=== PATIENT | male | born 1980 | race Caucasian/White ===

== ENCOUNTER 2016-12-21 05:05 | Inpatient (IN) | payer SELFPAY ==
[~2016-12-21] VITALS: Ht 188 cm; Wt 112.0 kg
[2016-12-21] MEDS ORDERED: NICARDIPINE 40MG/200ML PREMIX 200 ML IV PRN (05:45)
[2016-12-21] MEDS ORDERED: NITROGLYCERIN OINT 1GM/INCH UDPKT TD ONE (05:45)
[2016-12-21] MEDS ORDERED: CLONIDINE 0.2MG TABLET PO ONE (05:45)
[2016-12-21 05:58] LABS: BASOPHILS % 0.3 % (0.0-2.0); EOSINOPHILS % 0.1 % (0.0-5.0); HEMATOCRIT. 41.5 % (42.0-52.0); HEMOGLOBIN. 14.1 g/dL (14.0-18.0); LYMPHOCYTES % 15.6 % (20.0-50.0); MEAN CORPUSCULAR HEMOGLOBIN 27.9 pg (28.0-32.0); MEAN CORPUSCULAR VOLUME 81.8 fL (80.0-94.0); MEAN PLATELET VOLUME 7.5 fl (7.4-10.4); MONOCYTES % 8.6 % (2.0-8.0); NEUTROPHILS % 75.4 % (40.0-76.0); PLATELET 218 x1000/uL (130-400); RED BLOOD CELL COUNT 5.08 mill/uL (4.7-6.1); RED CELL DISTRIBUTION WIDTH 13.1 % (11.6-14.6)
[2016-12-21] MEDS ORDERED: SODIUM CHLORIDE 0.9% 1000ML BAG (SEPSIS BOLUS) IV ONE (06:00)
[2016-12-21 06:13] LABS: INR 1.2; PARTIAL THROMBOPLASTIN TIME 29.4 sec (23.4-31.0); PROTHROMBIN TIME 12.8 sec (9.4-11.6)
[2016-12-21 06:18] LABS: CARBON DIOXIDE 24 mEq/L (21-32); CHLORIDE 96 mEq/L (98-107); TROPONIN I 0.03 ng/mL (0.00-0.04)
[2016-12-21 08:37] LABS: CLARITY URINE CLEAR (CLEAR); COLOR URINE DARK YELLOW (YELLOW); GLUCOSE URINE NEGATIVE (NEGATIVE); KETONES URINE NEGATIVE (NEGATIVE); LEUKOCYTE ESTERASE URINE TRACE (NEGATIVE); NITRITE URINE NEGATIVE (NEGATIVE); OCCULT BLOOD URINE NEGATIVE (NEGATIVE); PH URINE 5.5 (4.5-8.0); PROTEIN URINE NEGATIVE (NEGATIVE); SPECIFIC GRAVITY URINE 1.019 (1.005-1.030)
[2016-12-21] MEDS ORDERED: LEVOFLOXACIN 500MG PREMIX 100 ML IV ONE (09:15)
[2016-12-21] MEDS ORDERED: METRONIDAZOLE 500 MG PREMIX 100 ML IV ONE (09:15)
[2016-12-21] MEDS ORDERED: NOREPINEPHRINE 4 MG in DEXT 5% WATER 246 ML IV ONE (11:00)
[2016-12-21] MEDS ORDERED: ACETAMINOPHEN 325MG TABLET PO ONE (11:00)
[2016-12-21] MEDS ORDERED: MORPHINE SULFATE 4 MG/ML CPJ (NOT FOR IM USE) IV PRN (13:45)
[2016-12-21] MEDS ORDERED: ONDANSETRON HCL 4MG/2ML VIAL IV PRN (13:45)
[2016-12-21] MEDS ORDERED: CLONIDINE 0.1MG TABLET PO PRN (13:45)
[2016-12-21] MEDS ORDERED: ACETAMINOPHEN 325MG TABLET PO PRN (13:45)
[2016-12-21] MEDS ORDERED: HYDROCODONE/ACETAMINOPHEN 5/325MG TABLET PO PRN (13:45)
[2016-12-21] MEDS ORDERED: DIPHENHYDRAMINE 50MG/ML VIAL IV PRN (13:45)
[2016-12-21] MEDS ORDERED: IPRATROPIUM/ALBUTEROL 0.5-3(2.5)MG/3ML NEB INH PRN (13:45)
[2016-12-21 14:57] LABS: CORTISOL 27.2 ucg/dL
[2016-12-21 15:09] LABS: HEPATITIS B SURFACE ANTIGEN NEGATIVE
[2016-12-21 15:36] LABS: HEPATITIS B CORE AB IGM NEGATIVE
[2016-12-21 15:38] LABS: HEPATITIS A AB IGM NEGATIVE (NEGATIVE)
[2016-12-21] MEDS: SODIUM CHLORIDE 0.9% 1,000 ML IV SCH (15:51)
[2016-12-21 16:07] LABS: *AMPHETAMINES SCREEN URINE PRESUMTIVE POSITIVE (NEGATIVE); *BARBITURATES SCREEN URINE NEGATIVE (NEGATIVE); *BENZODIAZEPINES SCREEN URINE NEGATIVE (NEGATIVE); *COCAINE SCREEN URINE NEGATIVE (NEGATIVE); CANNABINOID URINE SCREEN NEGATIVE (NEGATIVE); METHADONE URINE SCREEN NEGATIVE (NEGATIVE); OPIATES URINE SCREEN NEGATIVE (NEGATIVE); PHENCYCLIDINE URINE SCREEN NEGATIVE (NEGATIVE)
[2016-12-21 16:17] VITALS: BP 114/70
[2016-12-21 16:20] VITALS: BP 114/70
[2016-12-21 17:21] LABS: TROPONIN I 0.07 ng/mL (0.00-0.04)
[2016-12-21 18:00] VITALS: BP 104/65
[2016-12-21] MEDS ORDERED: CEFEPIME 2,000 MG in DEXT 5% WATER 100 ML IV SCH (18:30)
[2016-12-21 20:00] VITALS: BP 100/68
[2016-12-21] MEDS: METRONIDAZOLE 500 MG PREMIX 100 ML IV SCH (20:50)
[2016-12-21 22:00] VITALS: BP 119/69
[2016-12-22] VITALS: BP 95/59
[2016-12-22 02:00] VITALS: BP 110/65
[2016-12-22] MEDS: METRONIDAZOLE 500 MG PREMIX 100 ML IV SCH (03:46)
[2016-12-22] MEDS: SODIUM CHLORIDE 0.9% 1,000 ML IV SCH (03:47)
[2016-12-22 04:00] VITALS: BP 109/70
[2016-12-22 06:00] VITALS: BP 109/71
[2016-12-22 06:45] LABS: HEMATOCRIT. 38.7 % (42.0-52.0); HEMOGLOBIN. 13.5 g/dL (14.0-18.0); MEAN CORPUSCULAR HEMOGLOBIN 28.8 pg (28.0-32.0); MEAN CORPUSCULAR VOLUME 82.6 fL (80.0-94.0); MEAN PLATELET VOLUME 8.2 fl (7.4-10.4); PLATELET 189 x1000/uL (130-400); RED BLOOD CELL COUNT 4.68 mill/uL (4.7-6.1); RED CELL DISTRIBUTION WIDTH 13.2 % (11.6-14.6)
[2016-12-22 06:59] LABS: CLARITY URINE CLEAR (CLEAR); COLOR URINE DARK YELLOW (YELLOW); GLUCOSE URINE NEGATIVE (NEGATIVE); KETONES URINE NEGATIVE (NEGATIVE); LEUKOCYTE ESTERASE URINE NEGATIVE (NEGATIVE); NITRITE URINE NEGATIVE (NEGATIVE); OCCULT BLOOD URINE NEGATIVE (NEGATIVE); PH URINE 5.5 (4.5-8.0); PROTEIN URINE NEGATIVE (NEGATIVE); SPECIFIC GRAVITY URINE 1.021 (1.005-1.030)
[2016-12-22 07:00] LABS: CARBON DIOXIDE 27 mEq/L (21-32); CHLORIDE 103 mEq/L (98-107); TROPONIN I 0.11 ng/mL (0.00-0.04)
[2016-12-22 07:05] LABS: HDL CHOLESTEROL 12 mg/dL (40-59); LDL CHOLESTEROL 62 mg/dL (5-100)
[2016-12-22 17:39] LABS: PLATELET ESTIMATE NORMAL
[2016-12-23 09:11] LABS: ABSOLUTE LYMPHOCYTES 1.9 x10E3/uL (0.7-3.1); ABSOLUTE MONOCYTES 2.8 x10E3/uL (0.1-0.9); BASOPHILS 0 % (Not Estab.); HEMATOCRIT 43.2 % (37.5-51.0); HEMATOLOGY COMMENTS Note: (.); HEMOGLOBIN 14.7 g/dL (12.6-17.7); LYMPHOCYTES 13 % (Not Estab.); MEAN CORPUSCULAR VOLUME 85 fL (79-97); MONOCYTES 19 % (Not Estab.); NEUTROPHILS 58 % (Not Estab.); PLATELETS 209 x10E3/uL (150-379); RBC 5.07 x10E6/uL (4.14-5.80); RED CELL DISTRIBUTION WIDTH 14.1 % (12.3-15.4); WBC 14.7 x10E3/uL (3.4-10.8)
[2016-12-23 13:10] LABS: % CD 3 POS. LYMPHOCYTES 73.6 % (57.5-86.2); % CD 4 POS. LYMPHOCYTES 5.9 % (30.8-58.5); % CD 8 POS. LYMPH 66.7 % (12.0-35.5); ABSOLUTE CD 3 1398 /uL (622-2402); ABSOLUTE CD 4 HELPER 112 /uL (359-1519); ABSOLUTE CD 8 SUPPRESSOR 1267 /uL (109-897); CD4/CD8 RATIO 0.09 (0.92-3.72)
== END 2016-12-22 07:35 | disposition left against medical advice (07) | DRG 720 ==
LOC: ER 05:05 → EDBEDREQ 06:04 → EDBEDREQSVC 11:01 → ENRESERV 11:57 → CANRESERV 11:57 → EDBEDREQSVC 14:27 → EDBEDREQTM 14:27 → ENRESERV 15:25 → 5EST 16:28
PROVIDERS: ADMIT Internal Medicine; ATTEND Internal Medicine
PROC: 02HV33Z Insertion of Infusion Device into Superior Vena Cava, Percutaneous Approach (ICD-10-PCS; principal; 2016-12-21)
PROC: B548ZZA Ultrasonography of Superior Vena Cava, Guidance (ICD-10-PCS; 2016-12-21)
DX: A41.9 Sepsis, unspecified organism (principal); R65.21 Severe sepsis with septic shock; E87.2 Acidosis; I48.91 Unspecified atrial fibrillation; Z87.891 Personal history of nicotine dependence; Z91.19 Patient's noncompliance with other medical treatment and regimen; R74.0 Nonspecific elevation of levels of transaminase and lactic acid dehydrogenase [LDH]; Z59.0 Homelessness; K52.9 Noninfective gastroenteritis and colitis, unspecified
CPT/HCPCS: 36415; 36569; 71010; 76937; 80053; 80061; 80305; 81001; 81003; 82533; 83605; 83690; 83735; 84484; 85025; 85610; 85730; 86359; 86360; 86645; 86705; 86709; 86803; 87015; 87040; 87045; 87086; 87340; 87427; 87449; 87493; 89055; 93005; 96361; 96365; 96367; 96375; 99291; C1725; J0692; J1956; J3490; J7030; J7050; J7060

== ENCOUNTER 2017-07-05 17:41 | Emergency (ER) | payer OTHER ==
[~2017-07-05] VITALS: Ht 188 cm; Wt 100.0 kg
[2017-07-05 18:24] VITALS: BP 150/89
[2017-07-05] MEDS ORDERED: ACETAMINOPHEN 325MG TABLET PO ONE (19:00)
[2017-07-05] MEDS ORDERED: SODIUM CHLORIDE 0.9% 1000ML BAG (SEPSIS BOLUS) IV ONE (19:15)
[2017-07-05 19:39] LABS: CHLORIDE 100 mEq/L (98-107)
[2017-07-05 19:42] LABS: INR 1.1; PROTHROMBIN TIME 11.2 sec (9.4-11.6)
[2017-07-05 19:44] LABS: HEMATOCRIT. 42.1 % (42.0-52.0); HEMOGLOBIN. 14.9 g/dL (14.0-18.0); MEAN CORPUSCULAR HEMOGLOBIN 29.5 pg (28.0-32.0); MEAN CORPUSCULAR VOLUME 83.2 fL (80.0-94.0); MEAN PLATELET VOLUME 7.5 fl (7.4-10.4); PLATELET 242 x1000/uL (130-400); RED BLOOD CELL COUNT 5.05 mill/uL (4.7-6.1); RED CELL DISTRIBUTION WIDTH 13.5 % (11.6-14.6)
[2017-07-05 20:01] LABS: PLATELET ESTIMATE NORMAL
== END 2017-07-05 22:09 | disposition left against medical advice (07) ==
LOC: ER 21:30
DX: R10.9 Unspecified abdominal pain (principal); R94.5 Abnormal results of liver function studies; I48.0 Paroxysmal atrial fibrillation
CPT/HCPCS: 36415; 71045; 80053; 83605; 83690; 85025; 85610; 87040; 93005; 99285; J7030

== ENCOUNTER 2023-11-22 02:51 | Emergency (ER) | payer OTHER ==
[~2023-11-22] VITALS: Ht 182.9 cm; Wt 93.0 kg
[2023-11-22 02:54] VITALS: O2SAT 99
[2023-11-22 03:38] LABS: CHLORIDE 99 mEq/L (98-107); POTASSIUM 4.2 mEq/L (3.5-5.1); SODIUM 127 mEq/L (136-145)
[2023-11-22 03:39] LABS: CALCIUM 8.8 mg/dL (8.7-10.4); CARBON DIOXIDE 24 mEq/L (21-32)
[2023-11-22] MEDS: SODIUM CHLORIDE 0.9% 1000ML BAG (SEPSIS BOLUS) IV ONE (03:41)
[2023-11-22 03:44] LABS: CREATININE 0.8 mg/dL (0.6-1.3); GLUCOSE 115 mg/dL (70-105); UREA NITROGEN BLOOD 9 mg/dL (9-23)
[2023-11-22 03:46] LABS: ALANINE AMINOTRANSFERASE 69 IU/L (10-49); ALBUMIN 3.3 g/dL (3.2-4.8); ASPARTATE AMINOTRANSFERASE 103 IU/L (<34); BILIRUBIN DIRECT 0.1 mg/dL (<=3.0); BILIRUBIN TOTAL 0.4 mg/dL (0.1-1.0); HEMATOCRIT. 36.4 % (42.0-52.0); HEMOGLOBIN. 12.5 g/dL (14.0-18.0); MEAN CORPUSCULAR HEMOGLOBIN 30.8 pg (28.0-32.0); MEAN CORPUSCULAR HGB CONC 34.5 g/dL (31.0-37.0); MEAN CORPUSCULAR VOLUME 89.4 fL (80.0-94.0); MEAN PLATELET VOLUME 8.8 fl (7.4-10.4); PLATELET 176 x1000/uL (130-400); RED BLOOD CELL COUNT 4.07 mill/uL (4.7-6.1); RED CELL DISTRIBUTION WIDTH 14.3 % (11.6-14.6); WHITE BLOOD COUNT 4.9 x1000/uL (4.5-11.0)
[2023-11-22 03:47] LABS: PROTEIN TOTAL 8.2 g/dL (6.0-8.3)
[2023-11-22 03:48] LABS: INR 1.1; PROTHROMBIN TIME 12.2 sec (9.6-11.0)
[2023-11-22] MEDS: PIPERACILLIN/TAZO 3.375G/50ML 50 ML IV ONE (03:50)
[2023-11-22] MEDS: ACETAMINOPHEN 325MG TABLET PO STA (03:50)
[2023-11-22 03:55] LABS: DIFFERENTIAL COMMENT 1
[2023-11-22] MEDS: VANCOMYCIN 1G PREMIX 200 ML IV ONE (04:32)
[2023-11-22 04:37] LABS: BG BASE EXCESS -0.6 mmol/L (-2.0-3.0); BG CARBOXYHEMOGLOBIN 1.1 % (0.5-1.5); BG DEOXYHEMOGLOBIN 4.9 % (0.0-5.0); BG FRACTION INSPIRED OXYGEN 21; BG HCO3 ACT 22.4 mmol/L (21.0-28.0); BG METHEMOGLOBIN 0.3 % (0.5-1.5); BG OXYHEMOGLOBIN 93.7 % (94.0-98.0); BG PCO2 31.8 mmHg (35.0-48.0); BG PH 7.465 (7.350-7.450); BG PO2 74.3 mmHg (83.0-108.0); BG SAMPLE SITE RIGHT RADIAL; BG TOTAL HEMOGLOBIN 13.1 g/dL (13.5-17.5); BG VENT MODE ROOM AIR
[2023-11-22 04:46] LABS: CLARITY URINE CLEAR (CLEAR); COLOR URINE YELLOW (YELLOW); GLUCOSE URINE NEGATIVE (NEGATIVE); KETONES URINE NEGATIVE (NEGATIVE); LEUKOCYTE ESTERASE URINE NEGATIVE (NEGATIVE); NITRITE URINE NEGATIVE (NEGATIVE); OCCULT BLOOD URINE NEGATIVE (NEGATIVE); PROTEIN URINE NEGATIVE (NEGATIVE); SPECIFIC GRAVITY URINE 1.022 (1.005-1.030)
[2023-11-22] MEDS: IOHEXOL-300 100 ML BOTTLE ONE (06:39)
[2023-11-22] MEDS: ACETAMINOPHEN 500MG TABLET PO NR (08:19)
[2023-11-22 08:29] VITALS: BP 143/80; PULSE 121; RESP 16; TEMP 39.55872; O2SAT 97
[2023-11-22] MEDS ORDERED: MAGNESIUM/ALUMINUM HYDROXIDE/SIMETHICONE 30ML UDC PO PRN (09:30)
[2023-11-22] MEDS ORDERED: ZOLPIDEM TARTRATE 5MG TABLET PO PRN (09:30)
[2023-11-22] MEDS ORDERED: DOCUSATE SODIUM 100MG CAPSULE PO PRN (09:30)
[2023-11-22] MEDS ORDERED: ONDANSETRON HCL 4MG/2ML INJ IV PRN (09:30)
[2023-11-22] MEDS ORDERED: NITROGLYCERIN 0.4MG TABLET SL SL PRN (09:30)
[2023-11-22] MEDS ORDERED: GUAIFENESIN 200MG/10ML SUGAR FREE UDC PO PRN (09:30)
[2023-11-22] MEDS ORDERED: LACTATED RINGERS 1,000 ML IV SCH (09:30)
[2023-11-22] MEDS ORDERED: ACETAMINOPHEN 325MG TABLET PO PRN ×2 (09:30)
[2023-11-22] MEDS ORDERED: MEROPENEM 1,000 MG in SODIUM CHLORIDE 0.9% 100 ML IV SCH (09:30)
[2023-11-22] MEDS ORDERED: KETOROLAC 15MG/ML VIAL IV PRN (09:30)
[2023-11-22] MEDS ORDERED: IPRATROPIUM/ALBUTEROL 0.5-3(2.5)MG/3ML NEB NEB PRN (09:30)
[2023-11-22] MEDS ORDERED: CLONIDINE 0.1MG TABLET PO PRN (09:30)
[2023-11-22 09:48] LABS: IRON 20 ug/dL (65-175)
[2023-11-22 09:49] LABS: LDL CHOLESTEROL 33 mg/dL (5-100); TRIGLYCERIDE 114 mg/dL (0-150)
[2023-11-22 09:51] LABS: CHOLESTEROL 60 mg/dL (<200); HDL CHOLESTEROL < 20 mg/dL (>55); TOTAL IRON BINDING CAPACITY 240 ug/dl (250-425)
[2023-11-22 09:54] LABS: FOLIC ACID (FOLATE) SERUM 10.22 ng/mL (>5.38)
[2023-11-22 09:55] LABS: T4 FREE 0.71 ng/dL (0.89-1.76); THYROID STIMULATING HORMONE 0.33 uIU/mL (0.55-4.78)
[2023-11-22] MEDS ORDERED: ENOXAPARIN 40MG/0.4ML SYR SUBCUT SCH (10:00)
[2023-11-22] MEDS ORDERED: MEROPENEM 1G/100ML IV SCH (10:00)
[2023-11-22 10:23] LABS: ETHANOL BLOOD < 10 mg/dL (<10)
[2023-11-22] MEDS ORDERED: VANCOMYCIN 1GM/200ML PMX (BAXTER) IV SCH (12:00)
[2023-11-22 14:27] LABS: PLATELET ESTIMATE NORMAL
[2023-11-22 14:49] LABS: VITAMIN B12 SERUM 335 pg/mL (211-911)
[2023-11-22] MEDS ORDERED: ASCORBIC ACID 500 MG TABLET PO SCH (21:00)
[2023-11-22] MEDS ORDERED: FAMOTIDINE 20MG TABLET PO SCH (21:00)
[2023-11-23] MEDS ORDERED: ZINC SULFATE 220 MG ( 50 ) CAPSULE PO SCH (09:00)
[2023-11-23 09:07] LABS: % CD 3 POS. LYMPHOCYTES 71.4 % (57.5-86.2); % CD 8 POS. LYMPH 57.3 % (12.0-35.5); ABSOLUTE CD 3 928 /uL (622-2402); ABSOLUTE CD 4 HELPER 169 /uL (359-1519); ABSOLUTE CD 8 SUPPRESSOR 745 /uL (109-897); ABSOLUTE LYMPHOCYTES 1.3 x10E3/uL (0.7-3.1); ABSOLUTE MONOCYTES 0.5 x10E3/uL (0.1-0.9); BASOPHILS 0 % (Not Estab.); CD4/CD8 RATIO 0.23 (0.92-3.72); EOSINOPHILS 0 % (Not Estab.); HEMATOCRIT 33.9 % (37.5-51.0); HEMATOLOGY COMMENT Note: (.); HEMOGLOBIN 11.2 g/dL (13.0-17.7); IMMATURE GRANULOCYTES 1 % (Not Estab.); LYMPHOCYTES 27 % (Not Estab.); MEAN CORPUSCULAR HEMOGLOBIN 30.3 pg (26.6-33.0); MEAN CORPUSCULAR VOLUME 92 fL (79-97); MONOCYTES 10 % (Not Estab.); NEUTROPHILS 62 % (Not Estab.); PLATELETS 149 x10E3/uL (150-450); WBC 4.9 x10E3/uL (3.4-10.8)
== END 2023-11-22 09:45 | disposition left against medical advice (07) ==
LOC: ER 02:51
DX: R50.9 Fever, unspecified (principal); J45.909 Unspecified asthma, uncomplicated; Z20.822 Contact with and (suspected) exposure to COVID-19
CPT/HCPCS: 86359; 86360; 80061; 80076; 80048; 81003; 80320; 82607; 82746; 83036; 84439; 83540; 83550; 83605; 83690; 84443; 85025; 85610; 87040; 87804 ×2; 36415; 84145; 71045; 74177; 82805; 82375; 96367; 96365; 96366; 99285; 87426; 36600; Q9967; J2543; J3370; J7030; Z7610; J2185; G0480

== ENCOUNTER 2024-09-20 14:14 | Emergency (ER) | payer OTHER ==
[~2024-09-20] VITALS: Ht 182.9 cm; Wt 91.0 kg
[2024-09-20 14:16] VITALS: O2SAT 95
[2024-09-20 14:46] LABS: BASOPHILS % 0.9 % (0.0-2.0); EOSINOPHILS % 7.1 % (0.0-5.0); HEMATOCRIT. 38.5 % (42.0-52.0); HEMOGLOBIN. 12.7 g/dL (14.0-18.0); LYMPHOCYTES % 36.2 % (20.0-50.0); MEAN PLATELET VOLUME 8.4 fl (7.4-10.4); MONOCYTES % 14.3 % (2.0-8.0); NEUTROPHILS % 41.5 % (40.0-76.0); PLATELET 164 x1000/uL (130-400); RED BLOOD CELL COUNT 4.27 mill/uL (4.7-6.1); RED CELL DISTRIBUTION WIDTH 14.8 % (11.6-14.6)
[2024-09-20 15:25] LABS: CREATININE 0.7 mg/dL (0.6-1.3); UREA NITROGEN BLOOD 11 mg/dL (9-23)
[2024-09-20 15:40] LABS: INR 1.0
[2024-09-20 16:29] LABS: ASPARTATE AMINOTRANSFERASE 101 IU/L (<34); BILIRUBIN DIRECT 0.2 mg/dL (<=3.0); BILIRUBIN TOTAL 0.6 mg/dL (0.1-1.0); PROTEIN TOTAL 7.0 g/dL (6.0-8.3)
[2024-09-20] MEDS: LIDOCAINE 5% PATCH TOP STA (16:45)
[2024-09-20] MEDS: KETOROLAC 30MG/ML VIAL IM ONE (16:45)
[2024-09-20 16:49] VITALS: BP 164/108; PULSE 77; RESP 22; TEMP 36.7; O2SAT 95
[2024-09-20 17:27] LABS: CLARITY URINE TURBID (CLEAR); COLOR URINE DARK YELLOW (YELLOW); GLUCOSE URINE NEGATIVE (NEGATIVE); PH URINE 7.5 (4.5-8.0); PROTEIN URINE TRACE (NEGATIVE); SPECIFIC GRAVITY URINE 1.002 (1.005-1.030)
[2024-09-20 17:28] LABS: KETONES URINE NEGATIVE (NEGATIVE); LEUKOCYTE ESTERASE URINE 3+ (NEGATIVE); NITRITE URINE NEGATIVE (NEGATIVE); OCCULT BLOOD URINE 2+ (NEGATIVE); UROBILINOGEN URINE 2.0 E.U./dL (0.2-1.0)
[2024-09-20 17:42] LABS: BACTERIA URINE 4+; SQUAMOUS EPITHELIAL CELL URINE RARE /lpf (RARE/1+); WBC URINE 25-50 /hpf (0-2)
== END 2024-09-20 17:52 | disposition left against medical advice (07) ==
LOC: ER 14:14
DX: K51.911 Ulcerative colitis, unspecified with rectal bleeding (principal); M79.641 Pain in right hand; M25.562 Pain in left knee; J45.909 Unspecified asthma, uncomplicated; I10 Essential (primary) hypertension; F19.90 Other psychoactive substance use, unspecified, uncomplicated; Z86.73 Personal history of transient ischemic attack (TIA), and cerebral infarction without residual deficits; Z79.899 Other long term (current) drug therapy
CPT/HCPCS: 99285; 74176; 80076; 80048; 81003; 83690; 86141; 85025; 85610; 85651; 87086; 87186; 87077; 72040; 73130; 73562; 96372; 36415; J1885